=== PATIENT | male | born 1960 | race Caucasian/White ===

== ENCOUNTER 2021-07-03 15:47 | Emergency (ER) | payer SELFPAY ==
[~2021-07-03] VITALS: Ht 175.3 cm; Wt 99.8 kg
[2021-07-03 15:51] VITALS: BP_SYST 151
--- NOTE | 2021-07-03 15:51 | NUR ---
Patient to [facility] for evaluation. Side rails up.
--- NOTE | 2021-07-03 15:53 | NUR ---
PATIENT BROUGHT IN BY [facility] for medical clearance. patient reports history of afib. denies any complaints. denies any pain. md notified.
--- NOTE | 2021-07-03 16:01 | NUR ---
ER Dr. QURESHI at bedside examining patient.
[2021-07-03 16:23] VITALS: BP_SYST 132
--- NOTE | 2021-07-03 16:23 | NUR ---
Patient AND LASD given written and verbal discharge instructions and verbalizes understanding. ER MD discussed with patient the results and treatment provided. Patient in stable condition. ID arm band removed. Patient educated on pain management and to follow up with PMD. Pain Scale 0/10 Opportunity for questions provided and answered.
== END 2021-07-03 16:23 ==
LOC: SED 15:47
DX: Z02.89 Encounter for other administrative examinations (principal); I48.91 Unspecified atrial fibrillation
CPT/HCPCS: 93005; 99283